=== PATIENT | male | born 2000 | race African-American/Black ===

== ENCOUNTER 2022-05-09 16:53 | Emergency (ER) | payer SELFPAY ==
--- NOTE | ~2022-05-09 | XR_ITS ---
EXAM: XR hand LT min 3V DATE: 05/09/2022 17:11 HISTORY: Pt. injured left 5th digit playing basketball today. . COMPARISON: None available. FINDINGS: Normal mineralization. No fracture. Posterior lateral dislocation at the left fifth PIP lauren int. No lytic or blastic lesion. Joint spaces are maintained. No erosion or periosteal change. Soft t issues within normal limits. IMPRESSION: Posterior lateral dislocation at the left fifth PIP joint. Reviewed, dictated and finalized at location K. LE BUSINESS ANALYST
--- NOTE | ~2022-05-09 | XR_ITS ---
EXAM: XR hand LT min 3V DATE: 05/09/2022 18:51 HISTORY: post reduction for 5th digit . COMPARISON: Same date at 5:05 PM. FINDINGS/IMPRESSION: Successful interval reduction of the left fifth PIP dislocation. Reviewed, dictated and finalized at location K. E PLANER TENDER
[2022-05-09 16:56] VITALS: BP 149/78; PULSE 105; RESP 15; TEMP 36.7; O2SAT 99
--- NOTE | 2022-05-09 17:30 | ED.UPPEXIN ---
HPI - Extremity Injury (Upper) General Chief Complaint: Extremity Injury, Upper Stated Complaint: left finger injury Time Seen by Provider: 05/09/22 16:56 History of Present Illness HPI narrative: 21-year-old male presents emergency room for evaluation of left finger injury. Patient states he was playing basketball when he jammed his left pinky. Immediately noticed a deformity. Did not take any medications to alleviate his pain. No other injuries. Pain radiates into into his hand. Related Data Allergies Allergy/AdvReac Type Severity Reaction Status Date / Time No Known Allergies Allergy Verified 05/09/22 17:03 Review of Systems Review of Systems: CONSTITUTIONAL: Denies fever, chills, or sweats. EYES: Denies visual changes, redness, or discharge. ENT: Denies rhinorrhea, congestion, sore throat, or otalgia. CARDIOVASCULAR: Denies chest pain, palpitations, or edema. RESPIRATORY: Denies cough or dyspnea. GASTROINTESTINAL: Denies abdominal pain, nausea, vomiting, or diarrhea. GENITOURINARY: Denies dysuria or hematuria. SKIN: Denies rash or itching. MUSCULOSKELETAL: Reports left fifth finger pain NEUROLOGIC: Denies headache, numbness, dizziness, or weakness. PSYCHIATRIC: Denies anxiety or depression. Exam Narrative: GENERAL: Well-appearing, well-nourished, no physical limitations, and in no acute distress. HEAD: Normocephalic, atraumatic. EYES: Conjunctivae normal, PERRLA and EOMI. CHEST: Clear to auscultation. No respiratory distress. No wheezes rales or rhonchi. HEART: Regular rate and rhythm. No murmur heard. Normal peripheral pulses. EXTREMITIES: Left hand: Obvious deformity of the fifth digit at the PIP joint. Neurovascular is intact distally. Limited range of motion. Diffuse soft tissue swelling around the joint. SKIN: Warm, dry, no rash. No noted wounds NEURO: No focal deficits. Alert and oriented x3. MAEW. CN's II-XI intact bilaterally, normal gait PSYCH: Cooperative. Normal mood and affect. Course Vital Signs Vital signs: Vital Signs Temperature 36.7 C 05/09/22 16:56 Pulse Rate 105 H 05/09/22 16:56 Respiratory Rate 15 05/09/22 16:56 Blood Pressure 149/78 H 05/09/22 16:56 Pulse Oximetry 99 05/09/22 16:56 Oxygen Delivery Room Air 05/09/22 16:56 Temperature 36.7 C 05/09/22 16:56 Pulse Rate 105 H 05/09/22 16:56 Respiratory Rate 15 05/09/22 16:56 Blood Pressure 149/78 H 05/09/22 16:56 Pulse Oximetry 99 05/09/22 16:56 Oxygen Delivery Room Air 05/09/22 16:56 Procedures Orthopedic Joint Reduction Joint #1: Orthopedic Joint Reduction Date: 05/09/22 Orthopedic Joint Reduction Time: 18:28 Time Out Performed: Yes Side: left Joint Reduction Location: finger Analgesia: nerve block Pre-Procedure Neuro Vascular Exam: normal Local Anesthesia: lidocaine 1% Amount of anesthesic used (mL): 5 Technique used: direct manipulation Post-reduction neuro exam: intact Post-reduction vascular: intact Post Reduction X-Ray Obtained: Yes Post Reduction X-Ray Results: reduced Splint Applied: Yes Patient Tolerated Procedure: well Discharge Plan Discharge Clinical Impression: Dislocated finger Patient Disposition: Home, Self-Care Condition: Stable Instructions: Antibiotic Form, Splint Care (ED), Finger Dislocation (ED) Additional Instructions: Wear splint until your orthopedic appointment. My May take Tylenol and ibuprofen as needed discomfort. Follow-up/Referrals: PHYSICIAN NOT ON STAFF,NONSTAFF [Primary Care Provider] - Lloyd Rico MD [Physician] - Time of Disposition: 18:09
[2022-05-09] MEDS: LIDOCAINE HCL 1% PF 30 ML VIAL 20 ML INFILTRATE (18:46)
== END 2022-05-09 18:52 | disposition home or self-care (01) ==
PROVIDERS: Emergency Provider Nurse Practitioner Family
DX: S63.277A Dislocation of unspecified interphalangeal joint of left little finger, initial encounter (principal); W21.9XXA Striking against or struck by unspecified sports equipment, initial encounter; Y93.67 Activity, basketball
CPT/HCPCS: 26770; 73130; 99285